=== PATIENT | male | born 1995 | race African-American/Black ===

== ENCOUNTER 2017-11-07 14:38 | Emergency (ER) | payer MEDICAID | END 2017-11-07 17:34 | disposition left against medical advice (07) | LOC: ER 16:50 | DX: Z53.21 Procedure and treatment not carried out due to patient leaving prior to being seen by health care provider (principal) ==

== ENCOUNTER 2017-11-27 20:54 | Emergency (ER) | payer MEDICAID ==
[~2017-11-27] VITALS: Ht 170.2 cm; Wt 59.0 kg
[2017-11-27 21:12] VITALS: BP 148/91
== END 2017-11-28 01:32 | disposition left against medical advice (07) ==
LOC: ER 11-28 00:51
DX: Z53.21 Procedure and treatment not carried out due to patient leaving prior to being seen by health care provider (principal)

== ENCOUNTER 2018-06-25 20:26 | Emergency (ER) | payer OTHER ==
[~2018-06-25] VITALS: Ht 170.2 cm; Wt 59.1 kg
[2018-06-25] MEDS ORDERED: ONDANSETRON HCL 4MG/2ML INJ IV STA (21:33)
[2018-06-25] MEDS ORDERED: SODIUM CHLORIDE 0.9% 1,000 ML IV ONE (21:33)
[2018-06-25] MEDS ORDERED: KETOROLAC 30MG/ML VIAL IV STA (21:33)
[2018-06-25] MEDS ORDERED: MORPHINE SULFATE 4 MG/ML CPJ (NOT FOR IM USE) IV STA (21:33)
[2018-06-25 22:09] LABS: HEMATOCRIT. 49.3 % (42.0-52.0); HEMOGLOBIN. 16.7 g/dL (14.0-18.0); MEAN CORPUSCULAR HEMOGLOBIN 30.9 pg (28.0-32.0); MEAN CORPUSCULAR VOLUME 91.3 fL (80.0-94.0); MEAN PLATELET VOLUME 9.6 fl (7.4-10.4); PLATELET 267 x1000/uL (130-400); RED CELL DISTRIBUTION WIDTH 13.2 % (11.6-14.6)
[2018-06-25 22:14] LABS: CHLORIDE 102 mEq/L (98-107)
[2018-06-25 22:18] LABS: D-DIMER 0.2 mg/L FEU (<0.50); ETHANOL BLOOD < 10 mg/dL; PARTIAL THROMBOPLASTIN TIME 28.2 sec (23.4-31.0); PROTHROMBIN TIME 10.4 sec (9.1-11.1)
[2018-06-25 22:51] LABS: PLATELET ESTIMATE NORMAL
[2018-06-25] MEDS ORDERED: IOHEXOL-350 100 ML BOTTLE ONE (23:08)
[2018-06-26 00:58] LABS: *AMPHETAMINES SCREEN URINE NEGATIVE (NEGATIVE); *BARBITURATES SCREEN URINE NEGATIVE (NEGATIVE); *BENZODIAZEPINES SCREEN URINE NEGATIVE (NEGATIVE); *COCAINE SCREEN URINE NEGATIVE (NEGATIVE)
[2018-06-26 00:59] LABS: CANNABINOID URINE SCREEN PRESUMTIVE POSITIVE (NEGATIVE); METHADONE URINE SCREEN NEGATIVE (NEGATIVE); OPIATES URINE SCREEN PRESUMTIVE POSITIVE (NEGATIVE); PHENCYCLIDINE URINE SCREEN NEGATIVE (NEGATIVE)
[2018-06-26 02:20] VITALS: BP 117/69
== END 2018-06-26 02:34 | disposition home or self-care (01) ==
LOC: ER 20:26
DX: R07.89 Other chest pain (principal); R73.9 Hyperglycemia, unspecified; R94.31 Abnormal electrocardiogram [ECG] [EKG]; D72.829 Elevated white blood cell count, unspecified; F17.200 Nicotine dependence, unspecified, uncomplicated
CPT/HCPCS: 36415; 71045; 71275; 80053; 80305; 83690; 83880; 84484; 85025; 85379; 85610; 85730; 93005; 96374; 96375; 99284; G0482; J1885; J2270; J2405; J7030; Q9967

== ENCOUNTER 2019-09-02 10:04 | Emergency (ER) | payer MEDICAID, OTHER ==
[~2019-09-02] VITALS: Ht 172.7 cm; Wt 58.9 kg
[2019-09-02] MEDS ORDERED: SODIUM CHLORIDE 0.9% 1,000 ML IV ONE ×2 (11:04→11:15)
[2019-09-02 11:27] LABS: BASOPHILS % 0.4 % (0.0-2.0); EOSINOPHILS % 0.2 % (0.0-5.0); HEMATOCRIT. 48.6 % (42.0-52.0); HEMOGLOBIN. 16.6 g/dL (14.0-18.0); LYMPHOCYTES % 26.1 % (20.0-50.0); MEAN CORPUSCULAR HEMOGLOBIN 30.6 pg (28.0-32.0); MEAN CORPUSCULAR VOLUME 89.4 fL (80.0-94.0); MEAN PLATELET VOLUME 9.7 fl (7.4-10.4); MONOCYTES % 5.2 % (2.0-8.0); NEUTROPHILS % 68.1 % (40.0-76.0); PLATELET 224 x1000/uL (130-400); RED BLOOD CELL COUNT 5.44 mill/uL (4.7-6.1); RED CELL DISTRIBUTION WIDTH 13.9 % (11.6-14.6)
[2019-09-02 11:32] LABS: CHLORIDE 106 mEq/L (98-107)
[2019-09-02 11:33] LABS: INR 1.1; PROTHROMBIN TIME 12.2 sec (9.6-11.0)
[2019-09-02 12:56] VITALS: BP 130/80
== END 2019-09-02 13:14 | disposition home or self-care (01) ==
LOC: ER 10:04
DX: R11.2 Nausea with vomiting, unspecified (principal); E86.0 Dehydration; R19.7 Diarrhea, unspecified; R10.9 Unspecified abdominal pain
CPT/HCPCS: 36415; 80053; 83690; 85025; 85610; 96360; 96361; 99283; J7030